=== PATIENT | female | born 1940 | race Caucasian/White ===

== ENCOUNTER 2017-08-16 11:18 | Emergency (ER) | payer OTHER ==
[~2017-08-16] VITALS: Ht 154.9 cm; Wt 58.5 kg
[~2017-08-16 11:18] MED LIST: BUPR300T55 PO; LEVO137T20 PO; NORCO5 PO
[2017-08-16 11:35] VITALS: BP_SYST 159
[2017-08-16 13:17] VITALS: BP_SYST 148
== END 2017-08-16 13:17 | disposition home or self-care (01) ==
LOC: SED 11:18
DX: G89.29 Other chronic pain (principal); R51 Headache; Z88.5 Allergy status to narcotic agent
CPT/HCPCS: 99283